=== PATIENT | male | born 1985 | race Caucasian/White ===

== ENCOUNTER 2025-04-14 07:44 | Emergency (ER) | payer OTHER, SELFPAY ==
--- OUTSIDE RECORDS SUMMARY | 2020-04-14 07:28 | XMS_ITS | Continuity of Care Document ---
Author Organization [facility] Address [address] [place] [address] Phone Care Team Providers Care Precision Lathe Operator Name Role Phone Addi DENTAL SERVICE CHIEF, Elin Unavailable Unavailable Allergies, Adverse Reactions, Alerts Substance Reaction Status Criticality No Known Allergies Active No Inform ation Procedures Procedure Date Diagnostic Evaluation As per patient privacy policy some of the clinical information may not be visible. Advance Directives Directive Yes / No Effective Date File Name No Information Encounters Encounter Description Practice Location Reason(s) For Visit Diagnoses Date Provider Diagnostic Evaluation [facility], [address] [place] [address], [facility], tel:[phone] [facility] [address] [place] [address] Addi Elin. [address] [place] [address], [id number], . tel:[phone] As per patient privacy policy some of the clinical information may not be visible. Family History Family Member Type Diagnosis Age At Onset No Information Payers Payer name Insurance type Covered constitution party ID Authoriza tion(s) No Information Social History Type Description Quantity Date Captured Comments Alcohol Use Details Unknown Caffeine Use Details Unknown Tobacco Use Status No Information Smoking Status No Information Sex Male Sexual Orientation Straight or heterosexual Mar Gender Identity Male Chief Complaint And Reason For Visit No Information History Of Present Illness Encounter Date Complaint History Of Prese nt Illness No Information Instructions Date Instruction Additional Infor mation No Information Assessments Type Assessment Date No Information As per patient privacy policy some of the clinical information may not be visible.
--- NOTE | 2025-04-14 07:51 | ED.GENADULT ---
HPI - General Adult General Chief complaint: Psychiatric Symptoms Stated complaint: IN POLICE CUSTODY SI ETOH Time Seen by Provider: 04/14/25 07:48 Source: patient, RN notes reviewed and old records reviewed Mode of arrival: EMS Limitations: no limitations History of Present Illness ED Provider: Shantanu Gordon PA-C HPI narrative: 39-year-old male with medical history of alcohol use disorder presents to the ED by EMS due to intoxication and aggression. Patient states he was drinking last night, was up this morning using the bathroom when the police came. Patient states he is unsure who called the police on him but suspects it might be his sister who he states ?does not like me drinking?. 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 Patient believes he is able to handle his drinking up this time and is not looking for detox or help with decreasing drinking. Patient states he is feeling well at this time denies SI/HI, visual/auditory/tactile hallucinations, fever, chest pain, shortness of breath, abdominal pain, nausea, vomiting. MD complaint: Intoxication Related Data Allergies Allergy/AdvReac Type Severity Reaction Status Date / Time acetaminophen (From VICODIN) Allergy Unknown UNKNOWN Unverified 04/14/25 07:55 From VICODIN Allergy Unknown UNKNOWN Uncoded 04/14/25 07:55 Review of Systems Review of Systems: CONST: Negative for fever, body aches and chills. HENT: Negative for neck pain/stiffness, headache, congestion, sore throat, swelling. EYES: Negative for discharge/pain or vision changes. RESP: Negative for cough/hemoptysis and shortness of breath. CV: Negative chest pain, difficulty breathing, palpitations. ABD: Negative pain, nausea, vomiting. : Negative increase frequency, dysuria, blood in urine or stool. MUSC: Negative for muscle aches, edema. SKIN: Negative rash, lesions/sores. NEURO: Negative headache, dizziness, weakness. Yes all other systems are reviewed and are negative PMFSH Past Medical History Attestation statement: The following information was validated with the patient. Source: old records reviewed and nursing notes reviewed Social History Social History Alcohol intake: current Alcohol intake frequency: 3 or more drinks per day Alcohol type: beer and hard liquor Smoked in Last 30 Days: No Use of substances other than those prescribed or required for medical reasons: Yes Substance Use Type: Crack/Cocaine Last Used Substance: Days (ago) Advance Directives: No Advance Directives Information Provided: Yes Do you have a plan to hurt others: No Plan Physical Exam ED Vital Signs: Vital Signs - 24 hr 04/14/25 07:53 04/14/25 08:08 Temperature 98.6 F 98.6 F Pulse Rate 98 98 Respiratory Rate 20 20 Blood Pressure 143/93 H 143/93 H Pulse Oximetry 97 97 Oxygen Delivery Method Room Air Room Air BMI result Body Mass Index 28.7 GENERAL APPEARANCE: ?AxOx4, generally well-appearing, no acute distress. HEENT: ?NC, AT. MMM. EOMI, clear conjunctiva, oropharynx clear. NECK: ?Supple without lymphadenopathy.? No stiffness or restricted ROM. HEART:? Normal rate and regular rhythm, normal S1/S2, no m/r/g LUNGS:? CTAB, moving air well. No crackles or wheezes are heard. ABDOMEN: ?Soft, nontender, nondistended with good bowel sounds heard. BACK: No CVAT, no obvious deformity. EXTREMITIES: ?Without cyanosis, clubbing or edema. NEUROLOGICAL: ?Grossly nonfocal. Alert and oriented, moving all 4 extremities. Observed to ambulate with normal gait. Skin: ?Warm and dry without any rash. Medical Decision Making Medical Decision Making MDM Narrative: 39-year-old male with medical history of alcohol use disorder presents to the ED by EMS due to intoxication and aggression. Patient states he was drinking last night, was up this morning using the bathroom when the police came. Patient states he is unsure who called the police on him but suspects it might be his sister who he states ?does not like me drinking?. VS on initial observation-BP 143/93, pulse rate of 98, respiratory rate of 20, afebrile with oral temp of 98.6?, O2 saturation 97% on room air. Patient is well-appearing, without speech slurring, ataxic gait, patient seems to have good insight to his drinking noting that he does struggle with drinking but feels as if he has control of it at this time. Patient denies SI/HI, visual/auditory/tactile hallucinations. Patient states he is feeling good, just wants to go home. Plan: Labs, UA, GRANT, Care team consult, metabolize to freedom. Course 14:31- Labs without leukocytosis/leukopenia, H&H stable, no electrolyte abnormality. UA with 1+ urine protein, however negative for blood or infection. GRANT positive for cocaine, THC. ETOH at 369 at 9:22 a.m. this morning. Care team has talked to patient, not making SI/HI statements, no visual/auditory/tactile hallucinations. Care team states they talked to the sister, with the patient making several threats in the past for SI, sister would like to section 35 him. No indication for section 12 today in the hospital. Patient will be discharged home and sister can follow up with section 35 as she sees fit. I spoke with patient, no SI/HI, patient feels comfortable to go home for self-care. Patient states he is not interested in decreasing his drinking or help with drinking at this time. Patient states he feels safe at home. Patient does not seem to be intoxicated at this time, speaking without slurring, no ataxic gait, has good insight to his situation. Differential Diagnosis Differential Diagnoses: The differential diagnosis associated with the presentation includes Alcohol intoxication Alcohol withdrawal SI Admission/Observation Consideration of admission/observation: Escalation of care including admission/observation considered Lab Data MDM Lab Attestation statement: I reviewed the patient's lab results. 04/14/25 09:22 04/14/25 09:22 Labs: Lab Results 04/14/25 04/14/25 Range/Units 09:22 09:24 WBC 5.7 (4.8-10.8) X10*3/uL RBC 5.13 (4.60-5.80) X10*6/uL Hgb 16.6 (14.0-18.0) g/dl Hct 46.5 (42.0-52.0) % MCV 90.6 (80.0-98.0) fL MCH 32.4 (27.0-33.0) pg MCHC 35.7 (31.0-36.0) g/dl RDW 13.2 (11.0-16.0) % Plt Count 234 (160-400) X10*3/uL MPV 9.4 (9.4-12.4) fL Immature Gran % (Auto) 0.4 (0.0-0.4) % Neut % (Auto) 49.6 (45-73) % Lymph % (Auto) 40.3 H (20-40) % [place] % (Auto) 6.5 (2-11) % Eos % (Auto) 2.1 (0-4) % Baso % (Auto) 1.1 (0-2) % Lymph # (Auto) 2.3 (1.2-4.9) X10*3/uL [place] # (Auto) 0.4 (0.1-1.2) X10*3/uL Eos # (Auto) 0.1 (0.0-0.4) X10*3/uL Baso # (Auto) 0.1 (0.0-0.2) X10*3/uL Abs Immat Gran (auto) 0.02 (0.00-0.03) X10*3/uL Absolute Neuts (auto) 2.8 (2.0-8.3) x10*3/uL Absolute Nucleated RBC 0.000 (0.0-0.012) X10*3/uL Nucleated RBC % (auto) 0.0 (0.0-0.2) /100WBC Sodium 142 (135-145) mmol/L Potassium 3.6 (3.3-5.1) mmol/L Chloride 109 H (96-108) mmol/L Carbon Dioxide 24 (22-29) mmol/L Anion Gap 13 (12-20) BUN 9 (9-16) mg/dL Creatinine 0.75 (0.5-1.4) mg/dL Estim Creat Clear Calc 148.3 Estimated GFR > 60 Random Glucose 106 (60-115) mg/dL Calcium 8.3 L (8.4-10.2) mg/dL Total Bilirubin 0.3 (0.0-1.0) mg/dL AST 34 (5-37) U/L ALT 32 (0-40) U/L Alkaline Phosphatase 62 (39-117) U/L Total Protein 6.8 (6.5-8.0) g/dL Albumin 4.4 (3.5-5.0) g/dL Urine Color Yellow Urine Appearance Cloudy Urine pH 6.0 (5.0-9.0) Ur Specific [place] 1.025 (1.005-1.025) Urine Protein 30 (1+) H (Neg-Trace) mg/dL Urine Glucose (UA) Negative (Negative) mg/dL Urine Ketones Negative (Negative) mg/dL Urine Blood Negative (Negative) Urine Nitrite Negative (Negative) Ur Leukocyte Esterase Negative (Negative) Urine RBC 0-2 (0-2) /HPF Urine WBC 0-5 (0-5) /HPF Ur Squamous Epith Cells 0-2 (0-2) /HPF Urine Bacteria None Seen (None Seen) Hyaline Casts 0-2 (0-2) /LPF Salicylates < 5.0 L (15-30) mg/dL Urine Opiates Screen Not Detected (Not Detect) Ur Buprenorphine Scrn Not Detected (Not Detect) ng/mL Ur Oxycodone Screen Not Detected (Not Detect) ng/mL Urine Methadone Screen Not Detected (Not Detect) ng/mL Urine Fentanyl Screen Not Detected (Not Detect) Acetaminophen < 3 (<30) mcg/mL Ur Barbiturates Screen Not Detected (Not Detect) Ur Phencyclidine Scrn Not Detected (Not Detect) Ur Amphetamines Screen Not Detected (Not Detect) U Benzodiazepines Scrn Not Detected (Not Detect) Urine Cocaine Screen POSITIVE H (Not Detect) U Marijuana (THC) Screen POSITIVE H (Not Detect) Ethyl Alcohol 369 H* mg/dL Independent Historian Clinical information obtained from an independent historian. History obtained from or confirmed by: EMS External Record Review External record reviewed: Inpatient record, Office record and Outpatient record Chronic Conditions Patient?s care impacted by: Other (Alcohol use disorder) Discharge Plan Discharge Clinical Impression: Alcohol use disorder Patient Disposition: Home, Self-Care Instructions: At-Risk Alcohol Use (ED), Alcohol Use Disorder (ED) Additional Instructions: Alcohol use disorder You were seen in the Emergency Department today for treatment of alcohol use disorder.? You may have been given medications to help with your withdrawal symptoms.? Please do not drink alcohol with them. This is very dangerous and can cause respiratory depression or other adverse reactions depending on the medication. If you would like to cut down or stop your alcohol use please consider calling our outpatient Addiction Treatment office:? [facility] (M-F 9a-5p) [address] [place] [address] You have also been given a list of treatment providers in the area that can assist as well.? If you experience seizures, vomiting blood, black stools, falls, severe headache, chest pain, fevers, trouble breathing, hallucinations or any other concerns you need to call 911 or seek immediate care. Please stay hydrated. Interventions: [place]-Suicide Risk Severity Scale Last Done: 04/14/25 08:08 Print Language: Malaysian
[2025-04-14 07:53] VITALS: BP 143/93; PULSE 100; PULSE 98; RESP 20; TEMP 37; O2SAT 97; O2SAT 98; BMI 28.7
--- NOTE | 2025-04-14 08:02 | PC.NURSE ---
Pt arrives to ED via EMS from home after PD received a call from Pts sister reporting she received a text message indicating SI. Upon PD arrival, Pt noted to be intoxicated and aggressive therefore was transported to ED. On arrival, Pt is noted to be significantly agitated using foul language and yelling. Pt is able to be redirected for global climate change researcher process (security present) and belongings secured. Pt relocated to ED 8H per foam charger. Report given to OMAR Howell
[2025-04-14 08:08] VITALS: BP 143/93; PULSE 98; RESP 20; TEMP 37; O2SAT 97
--- NOTE | 2025-04-14 08:15 | PC.NURSE ---
39 M presents to ED with reports that he made SI statements per EMS, etoh intoxication in his home. Pt denies SI/HI at this time, c/o some tooth pain and his left wrist hurting from police but no other complaints. RR even and unlabored, denies CP or SOB. Pt A+O but intoxicated, last drink approximately 30 min ago per patient and when asked how much the patient drinks, he stated All of it
--- OUTSIDE RECORDS SUMMARY | 2025-04-14 08:50 | XMS_ITS ---
Author Organization [facility] Address [address] [address] Care Team Providers Care Pill Maker Name Role Phone Unavailable Primary Care Provider Marcel e [id number] Program Enrollment: [facility] [place] Status:Enrolled (Active) Start date:02/09/2022 Enrollment date:02/09/2022 Case Team Name Relationship Phone Soraya Elmore APRN(Responsible Staff) [phone] Continued Care and Services Coordination
--- OUTSIDE RECORDS SUMMARY | 2025-04-14 08:50 | XMS_ITS ---
Author Organization [facility] Address [address] [address] Care Team Providers Care Isotope Technician Name Role Phone Unavailable Primary Care Provider Marcel e [id number] Program Enrollment: Primary Care [place] Status:Enrolled (Active) Start date:03/04/2022 Enrollment date:03/04/2022 Case Team Name Relationship Phone Kaitlin Jose Antonio DESAI(Responsible Staff) [phone] Continued Care and Services Coordination
--- OUTSIDE RECORDS SUMMARY | 2025-04-14 08:50 | XMS_ITS | Clinical Summary ---
Author Organization [facility] Address [address] [place] [address] Care Team Providers Care American Sign Language Interpreter Name Role Phone Unavailable Primary Care Provider Unavailabl e Source Comments PLEASE NOTE, if this patient is a minor, it may be UNLAWFUL to discuss sensitive information that is contained in these records (such as FAMILY PLANNING, MENTAL HEALTH or SUBSTANCE ABUSE) with the minor patient's parent or other person without the patient's specific authorization.[facility] Allergies No known active allergies Medications hydrOXYzine pamoate (VISTARIL) 100 mg capsuleIndicatio ns:Anxiety Take 1 Capsule by mouth 3 (three) times daily as needed for anxiety 90 Capsule 02/09/2022 Active lactase (LACTAID) 3,000 unit tablet Take 1 Tablet by mouth 3 (three) times daily with meals 90 Tablet 07/11/2023 Active naproxen (NAPROSYN) 500 mg tablet Take 1 Tablet by mouth 2 (two) times daily with a meal 60 Tablet 2 03/10/2024 Active nicotine (NICODERM CQ) 21 mg/[address] 1 patch onto the skin every 24 hours as needed. 30 Patch 1 03/10/2024 Active nicotine, polacrilex, (NICORETTE) 4 mg gumIndications:M edication refill Take 1 Each by mouth every 2-3 (two to three) hours 190 Each 03/10/2024 Active tamsulosin (FLOMAX) 0.4 mg 24 hr capsule Take 1 Capsule by mouth once daily 30 Capsule 2 03/10/2024 Active traZODone (DESYREL) 50 mg tabletIndication s:Insomnia, unspecified type Take 2 Tablets by mouth nightly at bedtime as needed for sleep for up to 60 days Take 1-2 tabs nightly as needed 60 Tablet 1 03/10/2024 Active Active Problems Problem Noted Date Diagnosed Date Chronic right-sided low back pain with right-geoff ed sciatica 03/10/2024 Cigarette smoker 03/10/2024 Major depressive disorder, severe ([facility] ) 03/10/2024 Varicose veins of bilateral lower extremities with other complications 03/10/2024 Adjustment disorder with depressed mood 03/05/20 Benign prostatic hyperplasia with urinary freque ncy 07/11/2023 Right sided sciatica 03/06/2022 Medication refill 03/06/2022 Alcohol use disorder, severe, dependence ([facility]) 10/10/2021 Depression 09/26/2021 Immunizations Immunization Administration Dates Next Due PPD 10/09/2021 Family History Medical History Relation Name Comments Cancer Father COPD Mother Relation Name Status Comments Father Mother Alive Social History Tobacco Use Types Packs/Day Years Used Date Smoking Tobacco: Every Day Cigarettes 1.5 22 Smokeless Tobacco: Never Alcohol Use Standard Drinks/Week Comments Yes 36 (1 standard drink = 0.6 oz pu re alcohol) Social Social Connections Answer Date Recorded Connectedness 0 04/19/2024 Financial Resource Strain Answer Date R ecorded Financial Resource Strain 0 2022 Stress Answer Date Recorded Stress 0 06/20/2023 Physical Activity Answer Date Recorded Physical Activity 0 06/20/2023 Food Insecurity Answer Date Recorded Food 0 06/20/2023 Transportation Needs Answer Date Record ed Transportation 0 06/20/2023 Housing Stability Answer Date Recorded Housing 0 06/20/2023 Safety and Environment Answer Date Nathan rded Safety 0 06/20/2023 Utilities Answer Date Recorded Utilities 0 06/20/2023 Employment Answer Date Recorded Stress 0 06/20/2023 Sex and Gender Information Value Date Recorded Sex Assigned at Male 02/08/2022 7:32 AM PDT Legal Sex Male 12:36 PM PST Gender Identity Male 02/08/2022 7:32 AM PDT Sexual Orientation Straight 02/08/2022 7: 32 AM PDT Last Filed Vital Signs Vital Sign Reading Time Taken Comments Blood Pressure 120/75 03/10/2024 11:52 AM EDT Pulse 82 03/10/2024 11:52 AM EDT Temperature 36.6 C (97.8 F) 03/10/2024 11:52 AM EDT Respiratory Rate 18 03/10/2024 11:52 AM EDT Oxygen Saturation 97% 03/10/2024 11:52 AM EDT Inhaled Oxygen Concentration - - Weight 98 kg (216 lb) 03/10/2024 11:52 AM EDT Height 177.8 cm (5' 10 ) 03/10/2024 11:52 AM EDT Body Mass Index 30.99 03/10/2024 11:52 AM EDT Plan of Treatment Health Maintenance Due Date Last Done Comments Imm-DTaP/Tdap/Td (1 - Tdap) 2003 Imm-Hepatitis B (1 of 3 - 19 + 3-dose series) 2003 Imm-Pneumococcal (1 of 2 - PCV) 2003 [id number] ( - ) 04/11/2024 Depression Monitoring 06/10/2024 03/10/2024 , 07/11/2023, 06/20/2023, Additional history exists Anxiety Screening 07/11/2024 07/11/2023 Alcohol and Drug Screen 08/11/2024 03/10/20 24, 06/20/2023, 02/09/2022 Hypertension Screening (#1) 03/10/2025 Tobacco Cessation Counseling (#1) 03/10/2025 03/10/2024, 07/11/2023, 03/04/2022, Additional history exists Tobacco Screening 03/10/2025 03/10/2024, , 03/04/2022, Additional history exists Imm-Influenza (#1) 2025 Diabetes Screening 03/10/2027 03/10/2024, 0 03/10/2024, 02/20/2024, Additional history exists Lipid Screening 03/10/2029 03/10/2024 HIV Screening Completed 03/10/2024 Hepatitis C Screening Completed 03/10/2024 Goals Goal Patient Goal Type Associated Problems Recent Progress Patient-Stated? Author Goal: Build insight into the impact of substance use, decrease and/or eliminate substance use and develop effective coping skills. Care Plan Early Recovery No Kiel Aly LMSW Learn and use 3 new skills to reduce substance use, thoughts, urges and actions. Care Plan Early Recovery No Kiel Aly LMSW Identify 2 pros and 2 cons to making changes in life. Care Plan Early Recovery No Kiel Aly LMSW Identify 2 barriers to improving quality of life and problem solve 2 ways to overcome each barrier. Care Plan Early Recovery Kiel Ugarte LMSW Identify 3 triggers to substance use and 3 triggers to intense feelings. Care Plan Early Recovery No Kiel Aly LMSW Procedures Procedure Name Priority Date/Time Associated Diagnosis Comments HIV 1/2 AG & AB W/RFLX (4TH GEN) Routine 03/10/2024 12:34 PM EDT Encounter to establish care HEPATITIS C AB W/RFLX HCV RNA, QT, RT PCR Routine 03/10/2024 12:34 PM EDT Encounter to establish care HGA1C W/EAG Routine 03/10/2024 12:34 PM EDT Encounter to establish care LIPID PANEL Routine 03/10/2024 12:34 PM EDT Encounter to establish care from Last 3 Months or Most Recently Relevant to Health Maintenance Results * HEPATITIS C AB W/RFLX HCV RNA, QT, RT PCR - [id number] (03/10/2024 12:34 PM EDT) HEPATITIS C ANTIBODY NON-REACT YAJAIRA NON-REACT YAJAIRA [facility] Comment: HCV antibody was non-reactive. There is no laboratory evidence of HCV infection. In most cases, no further action is required. However, if recent HCV exposure is suspected, a test for HCV RNA (test code 49075) is suggested. For additional information please refer to http://education.Snapette/faq/HWA44u9 (This link is being provided for informational/ educational purposes only.) Blood Blood / Unknown 03/10/2024 1 2:34 PM EDT 03/11/2024 12:35 AM EDT Soraya Elmore APRN LAB - BLOOD DRAW Edited Resu lt - Final [facility] [id number] [place] [address], [employer] [address] [place] [address] * HIV 1/2 AG & AB W/RFLX (4TH GEN) - [id number] (03/10/2024 12:34 PM EDT) HIV AG/AB, 4TH GEN NON-REACT YAJAIRA NON-REACT YAJAIRA [facility] Comment: HIV-1 antigen and HIV-1/HIV-2 antibodies were not detected. There is no laboratory evidence of HIV infection. PLEASE NOTE: This information has been disclosed to you from records whose confidentiality may be protected by state law. If your state requires such protection, then the state law prohibits you from making any further disclosure of the information without the specific written consent of the person to whom it pertains, or as otherwise permitted by law. A general authorization for the release of medical or other information is NOT sufficient for this purpose. For additional information please refer to http://education.Snapette/faq/WLP791 (This link is being provided for informational/ educational purposes only.) The performance of this assay has not been clinically validated in patients less than 2 years old. Blood Blood / Unknown 03/10/2024 1 2:34 PM EDT 03/11/2024 12:35 AM EDT Soraayaaron Elmore GISELLE LAB - BLOOD DRAW Final Resul t [facility] [address] [address], [employer] [address] [place] [phone] * HGA1C W/EAG - [id number] (03/10/2024 12:34 PM EDT) HEMOGLOBIN A1C 5.4 <5.7 % of total Hgb [facility] Comment: For the purpose of screening for the presence of diabetes: <5.7% Consistent with the absence of diabetes 5.7-6.4% Consistent with increased risk for diabetes (prediabetes) > or =6.5% Consistent with diabetes This assay result is consistent with a decreased risk of diabetes. Currently, no consensus exists regarding use of hemoglobin A1c for diagnosis of diabetes in children. According to [place] Diabetes Association (ADA) guidelines, hemoglobin A1c <7.0% represents optimal control in non- diabetic patients. Different metrics may apply to specific patient populations. Standards of Medical Care in Diabetes(ADA). EAG (MG/DL) 108 mg/dL [facility] EAG (MMOL/L) 6.0 mmol/L [facility] Blood Blood / Unknown 03/10/2024 1 2:34 PM EDT 03/11/2024 12:35 AM EDT us Soraya Elmore APRN LAB - BLOOD DRAW Edited Resu lt - Final [facility] [address] [address], [facility] [address] [address] * LIPID PANEL - [id number] (03/10/2024 12:34 PM EDT) [facility] CHOLESTEROL, TOTAL 180 <200 mg/dL [facility] HDL CHOLESTEROL 65 > OR = 40 mg/dL [facility] TRIGLYCERIDES 146 <150 mg/dL [facility] LDL-CHOLESTEROL 90 99 mg/dL (calc) [facility] Comment: Reference range: <100 Desirable range <100 mg/dL for primary prevention; <70 mg/dL for patients with CHD or diabetic patients with > or = 2 CHD risk factors. LDL-C is now calculated using the Rahul-Neri calculation, which is a validated novel method providing better accuracy than the Friedewald equation in the estimation of LDL-C. Rahul HILLIARD et al. GABRIEL. 2013;310(19): 9202-4096 (http://education.Overhead.fm/faq/CKT354) CHOL/HDLC RATIO 2.8 <5.0 (calc) [facility] NON-HDL CHOLESTEROL 115 <130 mg/dL (calc) [facility] Comment: For patients with diabetes plus 1 major ASCVD risk factor, treating to a non-HDL-C goal of <100 mg/dL (LDL-C of <70 mg/dL) is considered a therapeutic option. Blood Blood / Unknown 03/10/2024 1 2:34 PM EDT 03/11/2024 12:35 AM EDT us Soraya Elmore DIRECTOR SUPPLY LAB - BLOOD DRAW Final Resul t [facility] [address] [address], [facility] [address] [address] from Last 3 Months or Most Recently Relevant to Health Maintenance Additional Health Concerns Active Problems Noted Date Diagnosed Date Early Recovery 06/23/[address] [place] MEDICAID Member Subscriber Plan / Payer (Ef fective 2021-Present) Name:Keith Amin Relation to Subscriber:Self Name:Keith Amin Payer ID:[id number] Group ID:Not on file Type:Medicaid Address: [address] [address] [facility]
--- NOTE | 2025-04-14 08:51 | PC.NURSE ---
Report called to POD RN, security called to move patient over
--- OUTSIDE RECORDS SUMMARY | 2025-04-14 08:51 | XMS_ITS | Clinical Summary ---
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 30 tablet 0 02/27/2024 Active nicotine polacrilex (NICORETTE) 2 MG gumIndications:Nicot ine Dependence Use as directed 1 each (2 mg total) in the mouth or throat every 2 (two) hours as needed for smoking cessation (Nicotine craving). 100 each 0 02/27/2024 Active folic acid (FOLVITE) tablet 1 mgIndications:Folate Deficiency Anemia Take 1 tablet (1 mg total) by mouth daily. 30 tablet 0 02/27/2024 Active Multiple Vitamin (multi-vitamin) tabletIndications:Nu tritional Support Take 1 tablet by mouth daily. 30 tablet 0 02/27/2024 Active Active Problems Problem Noted Date Diagnosed Date Major depressive disorder, severe 02/20/2024 Depressive disorder 01/28/2024 Suicidal ideation 09/26/2021 Alcohol use disorder, severe, dependence 020 Cigarette smoker Anxiety Chronic back pain Social History Tobacco Use Types Packs/Day Years Used Date Smoking Tobacco: Every Day Cigarettes 2 5 Smokeless Tobacco: Never Tobacco Cessation:Ready to Q uit: No; Counseling Given: Yes Alcohol Use Standard Drinks/Week Comments Yes 0 (1 standard drink = 0.6 oz pure alcohol) vodka 1 1/2 pint + 200 ml malt liquer Sex and Gender Information Value Date Recorded Sex Assigned at Male 06/13/2020 9:17 AM EST Gender Identity Male 06/14/2020 3:00 PM EST Sexual Orientation Straight 06/14/2020 3: 00 PM EST Job Start Date Occupation Industry Not on file Not on file Not on file Last Filed Vital Signs Vital Sign Reading Time Taken Comments Blood Pressure 100/72 02/27/2024 11:41 AM EDT Pulse 76 02/27/2024 11:41 AM EDT Temperature 36.7 C (98.1 F) 02/27/2024 11:39 AM EDT Respiratory Rate 18 02/27/2024 11:41 AM EDT Oxygen Saturation 97% 02/27/2024 11:39 AM EDT Inhaled Oxygen Concentration - - Weight 92.3 kg (203 lb 8 oz) 02/20/2024 10:08 PM EDT Height 179.1 cm (5' 10.5 ) 02/20/2024 10:08 PM E DT Body Mass Index 28.79 02/20/2024 10:08 PM EDT Plan of Treatment Health Maintenance Due Date Last Done Comments Hepatitis B Vaccines (1 of 3 - 3-dose series) 1984 Hepatitis C Screening 1984 COVID-19 Vaccine (#1) 1984 Pneumococcal Vaccine (1 of 2 - PCV) 1990 Depression Screening 1996 BMI Counseling 2002 Preventative Health Evaluation 2002 DTap / Tdap / Td (1 - Tdap) 2003 Tobacco Cessation Counseling 01/25/2025 01/26/2024 Influenza Vaccine (#1) 2025 RSV Ped < 20 months Aged Out No longe r eligible based on patient's age to complete this topic Advance Directives For more information, please contact: [phone] Documents on File Type Date Recorded Patient Filling Winder Expl anation Advance Directive and Living Will 03/01/2024 11:21 AM Advance Directive and Living Will 02/09/2024 12:12 PM Latest Code Status on File Code Status Date Activated Date Inactivated Comments Full Code 02/20/2024 10:33 PM 02/28/2024 1:04 AM This code status was ascertained in the following way: per unit protocol. Code Status History Code Status Date Activated Date Inactivated Comments Full Code 01/28/2024 2:16 PM 02/06/2024 8:09 PM This code status was ascertained in the following way: per unit protocol. Full Code 09/26/2021 4:04 PM 10/03/2021 7:21 PM This code status was ascertained in the following way: per unit protocol. Full Code 09/26/2021 1:42 PM 09/26/2021 4:04 PM This code status was ascertained in the following way: per unit protocol. Full Code 06/13/2020 8:45 PM 06/21/2020 7:22 PM This code status was ascertained in the following way: per unit protocol. 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
--- NOTE | 2025-04-14 09:00 | PC.NURSE ---
Patient is 39-year-old male with medical history of alcohol use disorder presents to the ED by EMS due to intoxication and aggression. Patient states he was drinking last night, was up this morning using the bathroom when the police came. Patient states he is unsure who called the police on him but suspects it might be his sister. Sister states patient texted her making SI statements. 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 Patient believes he is able to handle his drinking up this time and is not looking for detox or help with decreasing drinking. Patient states he is feeling well at this time denies SI/HI, visual/auditory/tactile hallucinations, fever, chest pain, shortness of breath, abdominal pain, nausea, vomiting. Patient presents to the pod sl armando, requesting to leave. Plan of care explained that patient would need to be seen by the CARE team prior to discharge.
[2025-04-14 09:32] LABS: MANUAL DIFF FLAG NO
[2025-04-14 09:36] LABS: Appearance Urine Cloudy; Glucose Urine UA Negative (Negative); PH 6.0 (5.0-9.0); Specific Gravity - Urine 1.025 (1.005-1.025); UMIC TRIGGER UA YES
[2025-04-14 09:37] LABS: Hematocrit 46.5 % (42.0-52.0); Hemoglobin 16.6 g/dl (14.0-18.0); Imm Gran Abs Auto 0.02 X10*3/uL (0.00-0.03); Imm Gran Pct Auto 0.4 % (0.0-0.4); Lymphocytes Absolute Auto 2.3 X10*3/uL (1.2-4.9); Mean Corpuscular HGB Conc 35.7 g/dl (31.0-36.0); Mean Corpuscular Hemoglobin 32.4 pg (27.0-33.0); Mean Corpuscular Volume 90.6 fL (80.0-98.0); NRBC Abs Auto 0.000 X10*3/uL (0.0-0.012); NRBC Pct Auto 0.0 /100WBC (0.0-0.2); Platelet Count 234 X10*3/uL (160-400); Red Blood Count 5.13 X10*6/uL (4.60-5.80); White Blood Count 5.7 X10*3/uL (4.8-10.8)
[2025-04-14 09:45] LABS: Cannabinoid Screen Urine POSITIVE (Not Detect)
[2025-04-14 10:00] LABS: Alanine Aminotransferase 32 U/L (0-40); Albumin Level 4.4 g/dL (3.5-5.0); Alkaline Phosphatase 62 U/L (39-117); Anion Gap 13 (12-20); Aspartate Amino Transferase 34 U/L (5-37); Blood Urea Nitrogen 9 mg/dL (9-16); Calcium 8.3 mg/dL (8.4-10.2); Carbon Dioxide 24 mmol/L (22-29); Chloride 109 mmol/L (96-108); Creatinine Clr Calc Pharmacy 148.3; Estimated Glomerular Filt Rate > 60; Potassium 3.6 mmol/L (3.3-5.1); Sodium 142 mmol/L (135-145); Total Protein 6.8 g/dL (6.5-8.0)
[2025-04-14 10:10] LABS: Acetaminophen LAB < 3 mcg/mL (<30); Salicylate < 5.0 mg/dL (15-30)
--- NOTE | 2025-04-14 10:21 | MHC.CARE ---
Left VM for Pt's sister for collateral.
--- NOTE | 2025-04-14 11:46 | MHC.CARE ---
T/W spoke with Pt's sister who reported Pt has a HX of severe alcohol use and has been Section 35'd in the past. She said he has been drinking a lot and sending her texts stating he's depressed and asking for help. Last night Pt reportedly sent her a text saying I am going to [facility] to buy some rope. Pt did not make a statement about hanging himself. Per his sister he has history of passive suicidal statements however has no HX of suicide attempts. She was informed Pt would be assessed at the appropriate time and she would not be informed of the disposition. She was informed based on the information provided Pt would most likely not meet the criteria for a Section 12 at this time however Pt has also not been assessed. She plans to petition the court for a Section 35.
--- NOTE | 2025-04-14 13:58 | MHC.CARE ---
Pt does not meet the criteria for IPLOC and will be discharged. ED provider in agreement with disposition. Cleared by CARE team
[2025-04-14 14:00] VITALS: BP 143/93; PULSE 98; RESP 20; TEMP 37; O2SAT 97
[2025-04-14 14:48] VITALS: BP 143/93; PULSE 98; RESP 20; TEMP 37; O2SAT 97
== END 2025-04-14 14:49 | disposition home or self-care (01) ==
PROVIDERS: Emergency Provider Emergency Medicine
DX: F10.129 Alcohol abuse with intoxication, unspecified (principal); Y90.8 Blood alcohol level of 240 mg/100 ml or more; F14.10 Cocaine abuse, uncomplicated; F10.10 Alcohol abuse, uncomplicated
CPT/HCPCS: 36415; 80053; 80143; 80179; 80307; 81001; 85025; 99285; S9485

== ENCOUNTER → 2025-08-10 19:43 | Outpatient (BNV) | payer OTHER, SELFPAY | PROVIDERS: Admitting Provider Family Medicine; Emergency Provider Student in an Organized Health Care Education/Training Program; Visit Provider Internal Medicine | DX: R00.0 Tachycardia, unspecified (principal) | CPT/HCPCS: 93010 ==

== ENCOUNTER → 2025-08-10 23:37 | Outpatient (BNV) | payer OTHER, SELFPAY | PROVIDERS: Admitting Provider Family Medicine; Emergency Provider Student in an Organized Health Care Education/Training Program; Visit Provider Family Medicine | DX: F10.231 Alcohol dependence with withdrawal delirium (principal); E87.29 Other acidosis; D69.6 Thrombocytopenia, unspecified | CPT/HCPCS: 99222; 99232 ==

== ENCOUNTER → 2025-08-10 23:37 | Outpatient (BNV) | payer OTHER, SELFPAY | PROVIDERS: Admitting Provider Family Medicine; Emergency Provider Student in an Organized Health Care Education/Training Program; Visit Provider Nurse Practitioner Psychiatric/Mental Health | DX: F10.20 Alcohol dependence, uncomplicated (principal) | CPT/HCPCS: 99222 ==